=== PATIENT | female | born 1950 | race Caucasian/White ===

== ENCOUNTER 2016-06-02 19:20 | Emergency (ER) | payer MEDICARE, OTHER ==
[~2016-06-02] VITALS: Ht 157.5 cm; Wt 83.9 kg
[~2016-06-02 19:20] MED LIST: ATENOLOL
[2016-06-02] MEDS ORDERED: IV NORMAL SALINE 500 ML BAG IV ONE (19:45)
[2016-06-02] MEDS ORDERED: ASPIRIN 325 MG TABLET PO ONE (19:45)
[2016-06-02] MEDS ORDERED: ASPIRIN 325 MG TABLET ONE (19:52)
[2016-06-02 20:02] LABS: BASOPHILS % (AUTO) 0.3 % (0.0-2.0); EOSINOPHILS # (AUTO) 0.1 K/uL (0.0-0.7); EOSINOPHILS % (AUTO) 1.4 % (0.0-7.0); HEMATOCRIT 28.3 % (37.0-47.0); HEMOGLOBIN 9.4 g/dL (12.0-16.0); LYMPHOCYTES # (AUTO) 1.8 K/uL (0.8-4.8); LYMPHOCYTES % (AUTO) 18.6 % (20.5-51.5); MEAN CORPUSCULAR HEMOGLOBIN 26.8 uug (27.0-31.0); MEAN CORPUSCULAR HGB CONC 33 g/dL (32.0-37.0); MEAN CORPUSCULAR VOLUME 80.8 fL (81.0-99.0); MONOCYTES # (AUTO) 0.7 K/uL (0.1-1.30); NEUTROPHILS # (AUTO) 7.3 K/uL (1.8-8.9); NEUTROPHILS % (AUTO) 72.7 % (38.5-71.5); PLATELET COUNT (AUTO) 302 K/uL (150-450); RED BLOOD CELL COUNT(AUTO) 3.51 MIL/uL (4.20-5.40); RED CELL DISTRIBUTION WIDTH 17.4 % (11.5-14.5); WHITE BLOOD COUNT (AUTO) 9.9 K/uL (4.0-11.2)
[2016-06-02 20:06] LABS: CREATININE 0.9 mg/dL (0.6-1.3); POTASSIUM 4.2 mmol/L (3.5-5.1)
[2016-06-02 20:18] LABS: ALBUMIN 2.9 g/dL (3.4-5.0); BILIRUBIN,DIRECT 0.1 mg/dL (0.0-0.2); BILIRUBIN,TOTAL 0.3 mg/dL (0.2-1.0); TOTAL PROTEIN, SERUM 8.1 g/dL (6.4-8.2)
[2016-06-02 20:20] LABS: ANISOCYTOSIS 1+
[2016-06-02 20:45] VITALS: BP 138/82
--- NOTE | 2016-06-02 20:45 | NUR ---
Patient discharged to home in stable conditon accompanied by daughter. Written and verbal after care instructions given to patient and family. Both verbalize understanding of instructions. Left facility at 8
== END 2016-06-02 20:45 | disposition home or self-care (01) ==
LOC: ER 19:20
DX: R07.89 Other chest pain (principal); I10 Essential (primary) hypertension
CPT/HCPCS: 36415; 70030-TC; 71010; 85025; 85730; 93005; A4663; J7030